=== PATIENT | male | born 1970 | race Caucasian/White ===

== ENCOUNTER 2023-12-08 13:46 | Emergency (ER) | payer BC ==
[~2023-12-08] VITALS: Ht 187.9 cm; Wt 145.1 kg
[~2023-12-08 13:46] MED LIST: ANUSOL-HC2.5% R; [UNRECOGNIZED DRUG - SUPPLY] TP
[2023-12-08] MEDS ORDERED: ANUSOL-HC25 MG R (14:14)
[2023-12-08] MEDS ORDERED: LORazepam 1 MG TAB PO ONE (14:25)
[2023-12-08 14:48] LABS: BASO % 0.2 % (0.0-1.0); EOS % 0.2 % (1.0-4.0); HEMATOCRIT 50.5 % (42.0-52.0); LYMPH % 14.7 % (27.0-41.0); MEAN CELL VOLUME 85.9 fl (80.0-94.0); MEAN CORPUSCULAR HGB 28.1 pg (27.0-31.0); MEAN CORPUSCULAR HGB CONC 32.7 g/dl (33.0-37.0); MONO # 0.6 10*3/uL (0.1-1.0); MONO % 4.3 % (3.0-9.0); NEUT % 80.2 % (47.0-73.0); PLATELET COUNT AUTOMATED 284 10*3/uL (130-400); RED BLOOD COUNT 5.88 10*6/uL (4.50-5.90); RED CELL DISTRI WIDTH 12.9 % (0-14.5); WHITE BLOOD COUNT 13.7 10*3/uL (4.8-10.8)
[2023-12-08 15:02] LABS: ACT PARTIAL THROMBO TIME 30.8 SECONDS (20.0-32.1)
[2023-12-08 15:05] LABS: ALKALINE PHOSPHATASE 82 U/L (46-116); BUN 8 mg/dl (9-23); CHLORIDE 101 mmol/L (98-107); POTASSIUM 3.9 mmol/L (3.4-5.1); SGPT/ALT 28 U/L (5-49); TOTAL PROTEIN 8.3 gm/dL (6.0-8.0)
== END 2023-12-08 15:25 | disposition home or self-care (01) ==
LOC: ED 13:46
PROVIDERS: Internal Medicine
DX: K64.4 Residual hemorrhoidal skin tags (principal)